=== PATIENT | male | born 1955 | race Caucasian/White ===

== ENCOUNTER 2020-03-17 17:13 | Emergency (ER) | payer MEDICARE, MEDICAID ==
[~2020-03-17] VITALS: Ht 175.3 cm; Wt 82.0 kg
[2020-03-17 17:17] VITALS: BP 129/78
== END 2020-03-17 18:50 | disposition left against medical advice (07) ==
LOC: ER 17:13
DX: Z53.21 Procedure and treatment not carried out due to patient leaving prior to being seen by health care provider (principal)

== ENCOUNTER 2023-03-04 13:43 | Emergency (ER) | payer MEDICARE, MEDICAID ==
[~2023-03-04] VITALS: Ht 175.3 cm; Wt 73.0 kg
[~2023-03-04 13:43] MED LIST: TAMS-11 MT
[2023-03-04 13:45] VITALS: TEMP 98.5; O2SAT 99
[2023-03-04 15:18] LABS: BASOPHILS % 0.6 % (0.0-2.0); EOSINOPHILS % 2.6 % (0.0-5.0); HEMATOCRIT. 40.3 % (42.0-52.0); HEMOGLOBIN. 13.7 g/dL (14.0-18.0); LYMPHOCYTES % 31.9 % (20.0-50.0); MEAN CORPUSCULAR HEMOGLOBIN 29.4 pg (28.0-32.0); MEAN CORPUSCULAR HGB CONC 33.9 g/dL (31.0-37.0); MEAN CORPUSCULAR VOLUME 86.7 fL (80.0-94.0); MEAN PLATELET VOLUME 8.9 fl (7.4-10.4); NEUTROPHILS % 59.9 % (40.0-76.0); PLATELET 189 x1000/uL (130-400); RED BLOOD CELL COUNT 4.65 mill/uL (4.7-6.1); RED CELL DISTRIBUTION WIDTH 13.4 % (11.6-14.6)
[2023-03-04 15:33] LABS: ALANINE AMINOTRANSFERASE 17 IU/L (10-49); ALBUMIN 3.7 g/dL (3.2-4.8); ASPARTATE AMINOTRANSFERASE 15 IU/L (<34); BILIRUBIN TOTAL 0.4 mg/dL (0.1-1.0); CALCIUM 9.1 mg/dL (8.7-10.4); CARBON DIOXIDE 27 mEq/L (21-32); CHLORIDE 108 mEq/L (98-107); CREATININE 0.9 mg/dL (0.6-1.3); GLUCOSE 149 mg/dL (70-105); POTASSIUM 4.2 mEq/L (3.5-5.1); PROTEIN TOTAL 6.6 g/dL (6.0-8.3); SODIUM 141 mEq/L (136-145); TROPONIN I HIGH SENSITIVITY 23 ng/L (3.0-53); UREA NITROGEN BLOOD 13 mg/dL (9-23)
[2023-03-04 15:37] LABS: ETHANOL BLOOD < 10 mg/dL (<10)
[2023-03-04] MEDS ORDERED: IBUPROFEN 600MG TABLET PO ONE (16:00)
[2023-03-04 16:24] VITALS: BP 117/84; PULSE 75; RESP 16
[2023-03-04 17:41] LABS: TROPONIN I HIGH SENSITIVITY 25 ng/L (3.0-53)
== END 2023-03-04 14:35 | disposition home or self-care (01) ==
LOC: ER 13:43
DX: R07.89 Other chest pain (principal); F15.10 Other stimulant abuse, uncomplicated; E11.9 Type 2 diabetes mellitus without complications; I11.0 Hypertensive heart disease with heart failure; I50.9 Heart failure, unspecified; Z98.890 Other specified postprocedural states
CPT/HCPCS: 36415; 71045; 80053; 80320; 83880; 84484; 85025; 93005; 99285; G0480

== ENCOUNTER 2023-05-16 15:38 | Inpatient (IN) | payer MEDICARE, MEDICAID ==
[~2023-05-16] VITALS: Ht 172.7 cm; Wt 71.7 kg
[2023-05-16 15:44] VITALS: O2SAT 100
[2023-05-16] MEDS ORDERED: CEFTRIAXONE 1GM/50ML 50 ML IV ONE (16:00)
[2023-05-16 16:39] LABS: BASOPHILS % 0.5 % (0.0-2.0); EOSINOPHILS % 0.1 % (0.0-5.0); HEMATOCRIT. 45.8 % (42.0-52.0); HEMOGLOBIN. 15.5 g/dL (14.0-18.0); LYMPHOCYTES % 14.1 % (20.0-50.0); MEAN CORPUSCULAR HEMOGLOBIN 29.3 pg (28.0-32.0); MEAN CORPUSCULAR HGB CONC 33.8 g/dL (31.0-37.0); MEAN CORPUSCULAR VOLUME 86.6 fL (80.0-94.0); MONOCYTES % 4.8 % (2.0-8.0); NEUTROPHILS % 80.5 % (40.0-76.0); PLATELET 212 x1000/uL (130-400); RED BLOOD CELL COUNT 5.29 mill/uL (4.7-6.1); RED CELL DISTRIBUTION WIDTH 13.8 % (11.6-14.6); WHITE BLOOD COUNT 16.9 x1000/uL (4.5-11.0)
[2023-05-16 16:51] LABS: PROTHROMBIN TIME 11.6 sec (9.6-11.0)
[2023-05-16 17:14] LABS: ALANINE AMINOTRANSFERASE 84 IU/L (10-49); ALBUMIN 4.9 g/dL (3.2-4.8); ASPARTATE AMINOTRANSFERASE 145 IU/L (<34); BILIRUBIN TOTAL 1.3 mg/dL (0.1-1.0); CALCIUM 9.7 mg/dL (8.7-10.4); CARBON DIOXIDE 21 mEq/L (21-32); CHLORIDE 109 mEq/L (98-107); CREATINE KINASE 2349 IU/L (46-171); CREATININE 0.8 mg/dL (0.6-1.3); ETHANOL BLOOD < 10 mg/dL (<10); GLUCOSE 176 mg/dL (70-105); POTASSIUM 3.9 mEq/L (3.5-5.1); PROTEIN TOTAL 8.3 g/dL (6.0-8.3); SODIUM 143 mEq/L (136-145); UREA NITROGEN BLOOD 37 mg/dL (9-23)
[2023-05-16 17:16] LABS: TROPONIN I HIGH SENSITIVITY 54 ng/L (3.0-53)
[2023-05-16] MEDS ORDERED: CLONIDINE 0.1MG TABLET PO PRN (19:30)
[2023-05-16] MEDS ORDERED: IPRATROPIUM/ALBUTEROL 0.5-3(2.5)MG/3ML NEB HHN PRN (19:30)
[2023-05-16] MEDS ORDERED: DOCUSATE SODIUM 100MG CAPSULE PO PRN (19:30)
[2023-05-16] MEDS ORDERED: MAGNESIUM/ALUMINUM HYDROXIDE/SIMETHICONE 30ML UDC PO PRN (19:30)
[2023-05-16] MEDS ORDERED: ONDANSETRON HCL 4MG/2ML INJ IV PRN (19:30)
[2023-05-16] MEDS ORDERED: DEXTROSE 50% WATER 50ML SYRINGE IV PRN (19:30)
[2023-05-16] MEDS ORDERED: GLIM1TAB PO (19:48)
[2023-05-16] MEDS ORDERED: SITA1TAB6 PO (19:48)
[2023-05-16] MEDS ORDERED: LURA120T2 PO (19:48)
[2023-05-16] MEDS ORDERED: SINCR21 PO (19:48)
[2023-05-16] MEDS ORDERED: ATOR40TA70 PO (19:48)
[2023-05-16] MEDS ORDERED: ESZO3TAB40 PO (19:48)
[2023-05-16] MEDS ORDERED: BUSP5TAB3 PO (19:48)
[2023-05-16] MEDS ORDERED: TRAZ-251 (19:48)
[2023-05-16] MEDS: SODIUM CHLORIDE 0.9% 1000ML BAG (SEPSIS BOLUS) IV ONE (20:16)
[2023-05-16] MEDS: ASPIRIN 81MG TABLET PO SCH (20:21)
[2023-05-16] MEDS: ENOXAPARIN 40MG/0.4ML SYR SUBCUT SCH (20:21)
[2023-05-16] MEDS: CEFTRIAXONE 1GM/50ML 50 ML IV NR (20:21)
[2023-05-16] MEDS: CARBIDOPA/LEVODOPA 25/100MG TABLET CR PO SCH (20:30)
[2023-05-16] MEDS: CEFTRIAXONE SODIUM 1G VIAL ONE (20:33)
[2023-05-16] MEDS: SODIUM CHLORIDE 0.9% 1,000 ML IV SCH (20:33)
[2023-05-16 20:37] LABS: HEPATITIS A AB IGM NEGATIVE (Negative); HEPATITIS B CORE AB IGM NEGATIVE (Negative); HEPATITIS B SURFACE ANTIGEN NEGATIVE (Negative); HEPATITIS C AB NON REACTIVE (Neg) (Negative)
[2023-05-16] MEDS: INSULIN LISPRO 100 UNITS/ML SUBCUT SCH (21:00)
[2023-05-16] MEDS: BLOOD SUGAR DIAGNOSTIC STRIP TEST SCH (21:53)
[2023-05-16] MEDS: FAMOTIDINE 20MG TABLET PO SCH (22:04)
[2023-05-16 22:26] LABS: CREATINE KINASE MB FRACTION 20.9 ng/mL (0.5-3.6)
[2023-05-16 23:14] LABS: CLARITY URINE CLEAR (CLEAR); COLOR URINE YELLOW (YELLOW); GLUCOSE URINE NEGATIVE (NEGATIVE); KETONES URINE 2+ (NEGATIVE); LEUKOCYTE ESTERASE URINE NEGATIVE (NEGATIVE); NITRITE URINE NEGATIVE (NEGATIVE); OCCULT BLOOD URINE NEGATIVE (NEGATIVE); PROTEIN URINE 2+ (NEGATIVE); SPECIFIC GRAVITY URINE 1.031 (1.005-1.030); UROBILINOGEN URINE 0.2 E.U./dL (0.2-1.0)
[2023-05-16 23:41] LABS: *AMPHETAMINES SCREEN URINE PRESUMPTIVE POSITIVE (NEGATIVE); *BARBITURATES SCREEN URINE NEGATIVE (NEGATIVE); *BENZODIAZEPINES SCREEN URINE PRESUMPTIVE POSITIVE (NEGATIVE); *COCAINE SCREEN URINE NEGATIVE (NEGATIVE); CANNABINOID URINE SCREEN NEGATIVE (NEGATIVE); ECSTASY MDMA SCREEN URINE CONF.TEST INDICATED (NEGATIVE); METHADONE URINE SCREEN Neg (NEGATIVE); OPIATES URINE SCREEN NEGATIVE (NEGATIVE); PHENCYCLIDINE URINE SCREEN NEGATIVE (NEGATIVE)
[2023-05-17] VITALS (7 sets, daily range): BP systolic 106–126; BP diastolic 48–81; PULSE 68–90; RESP 18–20; TEMP 96.6–97.8
[2023-05-17 02:57] LABS: BACTERIA URINE NONE SEEN; RBC URINE 0-2 /hpf (0-2); SQUAMOUS EPITHELIAL CELL URINE NONE SEEN /lpf (RARE/1+); WBC URINE 0-2 /hpf (0-2)
[2023-05-17 06:11] LABS: BASOPHILS % 0.3 % (0.0-2.0); EOSINOPHILS % 1.7 % (0.0-5.0); HEMATOCRIT. 44.8 % (42.0-52.0); HEMOGLOBIN. 14.8 g/dL (14.0-18.0); LYMPHOCYTES % 24.2 % (20.0-50.0); MEAN CORPUSCULAR HEMOGLOBIN 28.9 pg (28.0-32.0); MEAN CORPUSCULAR VOLUME 87.8 fL (80.0-94.0); MEAN PLATELET VOLUME 8.8 fl (7.4-10.4); NEUTROPHILS % 67.8 % (40.0-76.0); PLATELET 166 x1000/uL (130-400); RED CELL DISTRIBUTION WIDTH 14.1 % (11.6-14.6); WHITE BLOOD COUNT 13.6 x1000/uL (4.5-11.0)
[2023-05-17 08:19] LABS: ALANINE AMINOTRANSFERASE 28 IU/L (10-49); ALBUMIN 4.5 g/dL (3.2-4.8); ASPARTATE AMINOTRANSFERASE 114 IU/L (<34); CALCIUM 9.2 mg/dL (8.7-10.4); CARBON DIOXIDE 22 mEq/L (21-32); CHLORIDE 110 mEq/L (98-107); CHOLESTEROL 113 mg/dL (<200); CREATININE 0.7 mg/dL (0.6-1.3); GLUCOSE 98 mg/dL (70-105); HDL CHOLESTEROL 36 mg/dL (>55); LDL CHOLESTEROL 47 mg/dL (5-100); POTASSIUM 4.2 mEq/L (3.5-5.1); PROTEIN TOTAL 7.3 g/dL (6.0-8.3); SODIUM 145 mEq/L (136-145); T4 FREE 0.83 ng/dL (0.89-1.76); THYROID STIMULATING HORMONE 1.26 uIU/mL (0.55-4.78); TRIGLYCERIDE 109 mg/dL (0-150); UREA NITROGEN BLOOD 35 mg/dL (9-23)
[2023-05-17] MEDS: TAMSULOSIN HCL 0.4MG SR CAPSULE PO NR (08:44)
[2023-05-17] MEDS ORDERED: TAMSULOSIN HCL 0.4MG SR CAPSULE PO SCH (09:00)
[2023-05-17 10:13] LABS: CREATINE KINASE 1102 IU/L (46-171); TROPONIN I HIGH SENSITIVITY 47 ng/L (3.0-53)
[2023-05-17] MEDS: DUTASTERIDE 0.5MG CAPSULE PO NR (17:35)
[2023-05-17] MEDS: FOLIC ACID 1 MG, THIAMINE HCL 100 MG, MVI, ADULT NO.1 10 ML in DEXTROSE 5% WATER 1,000 ML IV ONE (17:35)
[2023-05-17] MEDS: BUSPIRONE HCL 5MG TABLET PO SCH (17:37)
[2023-05-17] MEDS ORDERED: CEFTRIAXONE 1GM/50ML 50 ML IV SCH (18:00)
[2023-05-17] MEDS: ACETAMINOPHEN 325MG TABLET PO PRN (19:35)
[2023-05-17] MEDS: TAMSULOSIN HCL 0.4MG SR CAPSULE PO SCH (20:45)
[2023-05-17] MEDS: TRAZODONE HCL 50MG TABLET PO SCH (20:46)
[2023-05-18] VITALS: BP 129/75; PULSE 87; RESP 20; TEMP 98.2
[2023-05-18] MEDS: LACTATED RINGERS 1,000 ML IV SCH (04:15)
[2023-05-18 06:04] LABS: HEMATOCRIT 41.6 % (42.0-52.0); HEMOGLOBIN 14.1 g/dL (14.0-18.0)
[2023-05-18 06:23] LABS: CALCIUM 8.6 mg/dL (8.7-10.4); CARBON DIOXIDE 25 mEq/L (21-32); CHLORIDE 106 mEq/L (98-107); CREATININE 0.6 mg/dL (0.6-1.3); GLUCOSE 208 mg/dL (70-105); POTASSIUM 3.1 mEq/L (3.5-5.1); SODIUM 139 mEq/L (136-145); UREA NITROGEN BLOOD 16 mg/dL (9-23)
[2023-05-18 06:57] LABS: VITAMIN B12 SERUM 647 pg/mL (211-911)
[2023-05-18 07:03] LABS: FOLIC ACID (FOLATE) SERUM > 48.00 ng/mL (>5.38)
[2023-05-18 07:18] LABS: AMMONIA 50 uMol/L (<32)
[2023-05-18 08:00] VITALS: BP 123/76; PULSE 85; RESP 18; TEMP 97.9
[2023-05-18] MEDS ORDERED: LURASIDONE HCL PO SCH (09:00)
[2023-05-18] MEDS: CLOPIDOGREL 75MG TABLET PO SCH (09:10)
[2023-05-18] MEDS: RIFAXIMIN 550 MG TABLET PO SCH (09:10)
[2023-05-18] MEDS: THIAMINE HCL 100MG TABLET PO SCH (09:10)
[2023-05-18] MEDS: LACTULOSE 20G/30ML UDC PO SCH (09:11)
[2023-05-18] MEDS: ATORVASTATIN CALCIUM 40MG TABLET PO SCH (09:11)
[2023-05-18] MEDS: FOLIC ACID 1MG TABLET PO SCH (09:11)
[2023-05-18 09:40] LABS: HEMATOCRIT 40.7 % (42.0-52.0); HEMOGLOBIN 13.9 g/dL (14.0-18.0); MEAN CORPUSCULAR HEMOGLOBIN 29.6 pg (28.0-32.0); MEAN CORPUSCULAR HGB CONC 34.2 g/dL (31.0-37.0); MEAN CORPUSCULAR VOLUME 86.4 fL (80.0-94.0); PLATELET 174 x1000/uL (130-400); RED BLOOD CELL COUNT 4.71 mill/uL (4.7-6.1); RED CELL DISTRIBUTION WIDTH 13.1 % (11.6-14.6); WHITE BLOOD COUNT 9.7 x1000/uL (4.5-11.0)
[2023-05-18 10:07] LABS: ALANINE AMINOTRANSFERASE 75 IU/L (10-49); ALBUMIN 4.2 g/dL (3.2-4.8); ASPARTATE AMINOTRANSFERASE 68 IU/L (<34); BILIRUBIN DIRECT 0.4 mg/dL (<=3.0); CREATINE KINASE 432 IU/L (46-171); PHOSPHORUS 2.6 mg/dL (2.5-4.9); PROTEIN TOTAL 7.1 g/dL (6.0-8.3)
[2023-05-18] MEDS: POTASSIUM CHLORIDE 20MEQ/PACKET PO SCH (10:36)
== END 2023-05-18 12:25 | disposition left against medical advice (07) | DRG 91 ==
LOC: ER 15:38 → 8WST 17:34 → EDBEDREQTM 17:36 → EDBEDREQ 17:36
PROVIDERS: ADMIT Internal Medicine; ATTEND Internal Medicine
DX: G92.8 Other toxic encephalopathy (principal); G82.50 Quadriplegia, unspecified; I21.A1 Myocardial infarction type 2; M62.82 Rhabdomyolysis; E78.5 Hyperlipidemia, unspecified; E11.9 Type 2 diabetes mellitus without complications; N40.0 Benign prostatic hyperplasia without lower urinary tract symptoms; S80.212A Abrasion, left knee, initial encounter; X58.XXXA Exposure to other specified factors, initial encounter; S80.211A Abrasion, right knee, initial encounter; G20.A1 Parkinson's disease without dyskinesia, without mention of fluctuations; F19.10 Other psychoactive substance abuse, uncomplicated; R26.9 Unspecified abnormalities of gait and mobility; R74.01 Elevation of levels of liver transaminase levels; F15.10 Other stimulant abuse, uncomplicated; I50.9 Heart failure, unspecified; Z79.84 Long term (current) use of oral hypoglycemic drugs; Z86.73 Personal history of transient ischemic attack (TIA), and cerebral infarction without residual deficits
CPT/HCPCS: 36415; 71045; 76700; 80048; 80053; 80061; 80076; 80305; 80320; 81003; 82140; 82306; 82550; 82553; 82607; 82746; 82962; 83036; 83605; 83735; 83880; 84100; 84145; 84439; 84443; 84484; 85014; 85018; 85025; 85027; 86705; 86709; 86850; 86900; 87340; 93005; 93306; 93880; 93970; 97162; 97166; 97530; 99285; J0696; J1650; J1815; J3411; J3490; J7030; J7070; J7120; G0480

== ENCOUNTER 2023-09-12 22:06 | Emergency (ER) | payer MEDICARE, MEDICAID ==
[~2023-09-12] VITALS: Ht 170.2 cm; Wt 73.0 kg
[~2023-09-12 22:06] MED LIST changes: +ATOR40TA70 PO; +BUSP5TAB3 PO; +ESZO3TAB40 PO; +GLIM1TAB PO; +LURA120T2 PO; +SINCR21 PO; +SITA1TAB6 PO; +TRAZ-251
[2023-09-12 22:19] VITALS: O2SAT 99
[2023-09-12] MEDS: LORAZEPAM 1MG TABLET PO ONE (23:27)
[2023-09-13 00:08] LABS: BASOPHILS % 0.5 % (0.0-2.0); EOSINOPHILS % 0.7 % (0.0-5.0); HEMATOCRIT. 40.7 % (42.0-52.0); HEMOGLOBIN. 13.9 g/dL (14.0-18.0); LYMPHOCYTES % 42.9 % (20.0-50.0); MEAN CORPUSCULAR HEMOGLOBIN 28.9 pg (28.0-32.0); MEAN CORPUSCULAR HGB CONC 34.1 g/dL (31.0-37.0); MEAN CORPUSCULAR VOLUME 84.8 fL (80.0-94.0); MEAN PLATELET VOLUME 8.9 fl (7.4-10.4); MONOCYTES % 6.4 % (2.0-8.0); NEUTROPHILS % 49.5 % (40.0-76.0); PLATELET 178 x1000/uL (130-400); RED CELL DISTRIBUTION WIDTH 13.6 % (11.6-14.6); WHITE BLOOD COUNT 5.3 x1000/uL (4.5-11.0)
[2023-09-13 00:20] LABS: CARBON DIOXIDE 24 mEq/L (21-32); CHLORIDE 110 mEq/L (98-107); POTASSIUM 3.9 mEq/L (3.5-5.1); SODIUM 141 mEq/L (136-145)
[2023-09-13 00:21] LABS: CALCIUM 9.2 mg/dL (8.7-10.4)
[2023-09-13 00:24] LABS: PARTIAL THROMBOPLASTIN TIME 24.8 sec (23.4-31.0); PROTHROMBIN TIME 11.2 sec (9.6-11.0)
[2023-09-13 00:25] VITALS: BP 124/79; PULSE 79; RESP 20; TEMP 97.9
[2023-09-13 00:26] LABS: CREATININE 0.7 mg/dL (0.6-1.3); GLUCOSE 89 mg/dL (70-105); UREA NITROGEN BLOOD 19 mg/dL (9-23)
[2023-09-13 00:28] LABS: TROPONIN I HIGH SENSITIVITY 40 ng/L (3.0-53)
[2023-09-13 00:30] LABS: ETHANOL BLOOD < 10 mg/dL (<10)
[2023-09-13] MEDS: ASPIRIN 325MG EC TABLET PO NR (00:36)
== END 2023-09-13 00:52 | disposition left against medical advice (07) ==
LOC: ER 22:06
DX: R07.89 Other chest pain (principal); F15.10 Other stimulant abuse, uncomplicated; I50.9 Heart failure, unspecified; E11.9 Type 2 diabetes mellitus without complications; Z79.899 Other long term (current) drug therapy
CPT/HCPCS: 36415; 71045; 80048; 80320; 83880; 84484; 85025; 93005; 99285; G0480

== ENCOUNTER 2023-09-17 01:51 | Emergency (ER) | payer MEDICARE, MEDICAID ==
[2023-09-17 02:34] LABS: BASOPHILS % 0.5 % (0.0-2.0); EOSINOPHILS % 1.1 % (0.0-5.0); HEMATOCRIT. 43.2 % (42.0-52.0); HEMOGLOBIN. 14.9 g/dL (14.0-18.0); LYMPHOCYTES % 36.2 % (20.0-50.0); MEAN CORPUSCULAR HEMOGLOBIN 28.9 pg (28.0-32.0); MEAN CORPUSCULAR HGB CONC 34.5 g/dL (31.0-37.0); MEAN CORPUSCULAR VOLUME 83.8 fL (80.0-94.0); MEAN PLATELET VOLUME 8.8 fl (7.4-10.4); MONOCYTES % 6.1 % (2.0-8.0); NEUTROPHILS % 56.1 % (40.0-76.0); PLATELET 189 x1000/uL (130-400); RED BLOOD CELL COUNT 5.16 mill/uL (4.7-6.1); RED CELL DISTRIBUTION WIDTH 13.9 % (11.6-14.6); WHITE BLOOD COUNT 6.8 x1000/uL (4.5-11.0)
[2023-09-17] MEDS: SODIUM CHLORIDE 0.9% 1,000 ML IV ONE (02:37)
[2023-09-17] MEDS: NITROGLYCERIN 0.4MG TABLET SL SL ONE (02:37)
[2023-09-17] MEDS: ASPIRIN 325MG EC TABLET PO ONE (02:37)
[2023-09-17] MEDS: LORAZEPAM 1MG TABLET PO ONE (02:37)
[2023-09-17 02:51] LABS: INR 1.1; PROTHROMBIN TIME 11.7 sec (9.6-11.0)
[2023-09-17 03:05] LABS: CLARITY URINE CLEAR (CLEAR); COLOR URINE YELLOW (YELLOW); GLUCOSE URINE NEGATIVE (NEGATIVE); KETONES URINE NEGATIVE (NEGATIVE); LEUKOCYTE ESTERASE URINE NEGATIVE (NEGATIVE); NITRITE URINE NEGATIVE (NEGATIVE); OCCULT BLOOD URINE NEGATIVE (NEGATIVE); PH URINE 6.5 (4.5-8.0); PROTEIN URINE NEGATIVE (NEGATIVE); SPECIFIC GRAVITY URINE 1.011 (1.005-1.030); UROBILINOGEN URINE 0.2 E.U./dL (0.2-1.0)
[2023-09-17 03:23] LABS: CHLORIDE 106 mEq/L (98-107); POTASSIUM 3.9 mEq/L (3.5-5.1); SODIUM 138 mEq/L (136-145)
[2023-09-17 03:24] LABS: CALCIUM 9.6 mg/dL (8.7-10.4); CARBON DIOXIDE 22 mEq/L (21-32)
[2023-09-17 03:29] LABS: CREATININE 0.7 mg/dL (0.6-1.3); GLUCOSE 120 mg/dL (70-105); TROPONIN I HIGH SENSITIVITY 36 ng/L (3.0-53); UREA NITROGEN BLOOD 13 mg/dL (9-23)
[2023-09-17 03:31] LABS: ALANINE AMINOTRANSFERASE 7 IU/L (10-49); ALBUMIN 4.4 g/dL (3.2-4.8); ASPARTATE AMINOTRANSFERASE 21 IU/L (<34); BILIRUBIN DIRECT 0.3 mg/dL (<=3.0); BILIRUBIN TOTAL 0.7 mg/dL (0.1-1.0); PROTEIN TOTAL 7.1 g/dL (6.0-8.3)
[2023-09-17 06:29] VITALS: BP 131/69; PULSE 89; RESP 15
== END 2023-09-17 07:02 | disposition admitted as inpatient to this hospital (09) ==
LOC: ER 01:51 → EDBEDREQ 03:51 → EDBEDREQTM 03:51 → ER 07:02
DX: R55 Syncope and collapse (principal); F15.10 Other stimulant abuse, uncomplicated; E78.00 Pure hypercholesterolemia, unspecified; E11.9 Type 2 diabetes mellitus without complications; Z98.890 Other specified postprocedural states
CPT/HCPCS: 99291; 80076; 80048; 81003; 83880; 83690; 85025; 85610; 84484; 36415; 71045; 93005; J7030

== ENCOUNTER 2023-09-19 02:26 | Emergency (ER) | payer MEDICARE, MEDICAID ==
[~2023-09-19] VITALS: Ht 175.3 cm; Wt 78.0 kg
[2023-09-19 02:30] VITALS: BP 136/79; PULSE 92; RESP 20; TEMP 98.1; O2SAT 97
[2023-09-19 03:38] LABS: BASOPHILS % 0.3 % (0.0-2.0); HEMATOCRIT. 43.9 % (42.0-52.0); HEMOGLOBIN. 14.9 g/dL (14.0-18.0); LYMPHOCYTES % 34.6 % (20.0-50.0); MEAN CORPUSCULAR HEMOGLOBIN 28.8 pg (28.0-32.0); MEAN CORPUSCULAR VOLUME 84.8 fL (80.0-94.0); MEAN PLATELET VOLUME 8.7 fl (7.4-10.4); MONOCYTES % 4.1 % (2.0-8.0); PLATELET 198 x1000/uL (130-400); RED BLOOD CELL COUNT 5.18 mill/uL (4.7-6.1); RED CELL DISTRIBUTION WIDTH 13.6 % (11.6-14.6); WHITE BLOOD COUNT 7.9 x1000/uL (4.5-11.0)
[2023-09-19 03:58] LABS: CHLORIDE 108 mEq/L (98-107); POTASSIUM 4.2 mEq/L (3.5-5.1); SODIUM 140 mEq/L (136-145)
[2023-09-19 03:59] LABS: CALCIUM 9.5 mg/dL (8.7-10.4)
[2023-09-19 04:04] LABS: CREATININE 0.7 mg/dL (0.6-1.3)
[2023-09-19] MEDS: LORAZEPAM 1MG TABLET PO ONE (05:50)
[2023-09-19 06:05] LABS: CARBON DIOXIDE 20 mEq/L (21-32); GLUCOSE 106 mg/dL (70-105); UREA NITROGEN BLOOD 14 mg/dL (9-23)
[2023-09-19 06:10] LABS: BASOPHILS % 0.5 % (0.0-2.0); EOSINOPHILS % 1.6 % (0.0-5.0); HEMATOCRIT. 43.3 % (42.0-52.0); HEMOGLOBIN. 14.7 g/dL (14.0-18.0); LYMPHOCYTES % 37.7 % (20.0-50.0); MEAN CORPUSCULAR HEMOGLOBIN 28.6 pg (28.0-32.0); MEAN CORPUSCULAR VOLUME 84.2 fL (80.0-94.0); MEAN PLATELET VOLUME 8.3 fl (7.4-10.4); MONOCYTES % 4.9 % (2.0-8.0); NEUTROPHILS % 55.3 % (40.0-76.0); PLATELET 215 x1000/uL (130-400); RED BLOOD CELL COUNT 5.14 mill/uL (4.7-6.1); RED CELL DISTRIBUTION WIDTH 13.5 % (11.6-14.6)
[2023-09-19 06:20] LABS: CHLORIDE 108 mEq/L (98-107); POTASSIUM 3.9 mEq/L (3.5-5.1); SODIUM 138 mEq/L (136-145)
[2023-09-19 06:21] LABS: CARBON DIOXIDE 21 mEq/L (21-32)
[2023-09-19 06:22] LABS: CALCIUM 9.7 mg/dL (8.7-10.4)
[2023-09-19 06:26] LABS: CREATININE 0.7 mg/dL (0.6-1.3); GLUCOSE 104 mg/dL (70-105)
[2023-09-19 06:27] LABS: TROPONIN I HIGH SENSITIVITY 33 ng/L (3.0-53); UREA NITROGEN BLOOD 14 mg/dL (9-23)
[2023-09-19 06:28] LABS: ALANINE AMINOTRANSFERASE 9 IU/L (10-49); ALBUMIN 4.4 g/dL (3.2-4.8); ASPARTATE AMINOTRANSFERASE 21 IU/L (<34)
[2023-09-19 06:29] LABS: BILIRUBIN TOTAL 0.9 mg/dL (0.1-1.0)
== END 2023-09-19 08:09 | disposition home or self-care (01) ==
LOC: ER 02:38
DX: F41.9 Anxiety disorder, unspecified (principal); R07.89 Other chest pain; F15.10 Other stimulant abuse, uncomplicated; E78.00 Pure hypercholesterolemia, unspecified; E11.9 Type 2 diabetes mellitus without complications; Z79.899 Other long term (current) drug therapy; Z98.890 Other specified postprocedural states
CPT/HCPCS: 36415; 80048; 80053; 84484; 85025; 93005; 99284

== ENCOUNTER 2023-11-13 23:38 | Inpatient (IN) | payer MEDICARE, MEDICAID ==
[~2023-11-13] VITALS: Ht 172.7 cm; Wt 82.0 kg
[~2023-11-13 23:38] MED LIST changes: -GLIM1TAB PO; +GLIM1TAB55 PO
[2023-11-13 23:42] VITALS: O2SAT 98
[2023-11-14] MEDS ORDERED: MORPHINE SULFATE 4 MG/ML INJ (FOR IV/IM USE) IV STA (00:23)
[2023-11-14] MEDS: ASPIRIN 81MG TABLET PO ONE (00:30)
[2023-11-14 00:55] LABS: BASOPHILS % 0.3 % (0.0-2.0); HEMATOCRIT. 44.3 % (42.0-52.0); HEMOGLOBIN. 14.9 g/dL (14.0-18.0); LYMPHOCYTES % 37.2 % (20.0-50.0); MEAN CORPUSCULAR HEMOGLOBIN 28.8 pg (28.0-32.0); MEAN CORPUSCULAR HGB CONC 33.6 g/dL (31.0-37.0); MEAN CORPUSCULAR VOLUME 85.6 fL (80.0-94.0); MONOCYTES % 6.5 % (2.0-8.0); PLATELET 207 x1000/uL (130-400); RED BLOOD CELL COUNT 5.17 mill/uL (4.7-6.1); RED CELL DISTRIBUTION WIDTH 13.4 % (11.6-14.6); WHITE BLOOD COUNT 10.5 x1000/uL (4.5-11.0)
[2023-11-14 01:05] LABS: CHLORIDE 105 mEq/L (98-107); POTASSIUM 3.9 mEq/L (3.5-5.1); SODIUM 139 mEq/L (136-145)
[2023-11-14 01:06] LABS: CALCIUM 10.7 mg/dL (8.7-10.4); CARBON DIOXIDE 25 mEq/L (21-32)
[2023-11-14 01:11] LABS: GLUCOSE 115 mg/dL (70-105); UREA NITROGEN BLOOD 12 mg/dL (9-23)
[2023-11-14 01:37] LABS: TROPONIN I HIGH SENSITIVITY 77 ng/L (3.0-53)
[2023-11-14] MEDS: HEPARIN 5000 UNITS/ML VIAL IV ONE (03:00)
[2023-11-14] MEDS: ASPIRIN 81MG TABLET PO NR (03:30)
[2023-11-14] MEDS: HEPARIN 5000 UNITS/ML VIAL IV NR (03:30)
[2023-11-14 03:48] LABS: TROPONIN I HIGH SENSITIVITY 75 ng/L (3.0-53)
[2023-11-14] MEDS: MORPHINE SULFATE 4 MG/ML INJ (FOR IV/IM USE) IV NR (04:16)
[2023-11-14 05:16] LABS: CREATININE 0.9 mg/dL (0.6-1.3)
[2023-11-14 05:46] VITALS: O2SAT 100
[2023-11-14] MEDS: LORAZEPAM 0.5MG TABLET PO NR (06:04)
[2023-11-14] MEDS: NITROGLYCERIN 0.4MG TABLET SL SL PRN (06:04)
[2023-11-14] MEDS ORDERED: IPRATROPIUM/ALBUTEROL 0.5-3(2.5)MG/3ML NEB HHN PRN (06:15)
[2023-11-14] MEDS ORDERED: THROAT LOZENGES-BENZOCAINE/MENTH/CETYLPYRD CL LOZENGES MM PRN (06:15)
[2023-11-14] MEDS ORDERED: ONDANSETRON HCL 4MG/2ML INJ IV PRN (06:15)
[2023-11-14] MEDS ORDERED: DOCUSATE SODIUM 100MG CAPSULE PO PRN (06:15)
[2023-11-14] MEDS ORDERED: ACETAMINOPHEN 325MG TABLET PO PRN ×2 (06:15)
[2023-11-14] MEDS ORDERED: GUAIFENESIN 200MG/10ML SUGAR FREE UDC PO PRN (06:15)
[2023-11-14] MEDS ORDERED: LORAZEPAM 0.5MG TABLET PO PRN (06:15)
[2023-11-14] MEDS ORDERED: CLONIDINE 0.1MG TABLET PO PRN (06:15)
[2023-11-14 06:24] VITALS: BP 148/98; PULSE 69; RESP 14; TEMP 36.78072
[2023-11-14] MEDS ORDERED: TAMSULOSIN HCL 0.4MG SR CAPSULE PO SCH (09:00)
[2023-11-14] MEDS ORDERED: LURASIDONE HCL PO SCH (09:00)
[2023-11-14] MEDS ORDERED: ASPIRIN 81MG TABLET PO SCH (09:00)
[2023-11-14] MEDS ORDERED: BUSPIRONE HCL 5MG TABLET PO SCH (09:00)
[2023-11-14] MEDS ORDERED: CARBIDOPA/LEVODOPA 25/100MG TABLET PO SCH (09:00)
[2023-11-14] MEDS ORDERED: ATORVASTATIN CALCIUM 40MG TABLET PO SCH (09:00)
[2023-11-14] MEDS ORDERED: ENOXAPARIN 40MG/0.4ML SYR SUBCUT SCH (10:00)
[2023-11-14] MEDS ORDERED: TRAZODONE HCL 50MG TABLET PO SCH (21:00)
[2023-11-14] MEDS ORDERED: FAMOTIDINE 20MG TABLET PO SCH (21:00)
== END 2023-11-14 06:44 | disposition left against medical advice (07) | DRG 282 ==
LOC: ER 23:38 → 5WST 11-14 04:50
PROVIDERS: ADMIT Internal Medicine; ATTEND Internal Medicine
DX: I21.4 Non-ST elevation (NSTEMI) myocardial infarction (principal); N40.0 Benign prostatic hyperplasia without lower urinary tract symptoms; G20.A1 Parkinson's disease without dyskinesia, without mention of fluctuations; I25.10 Atherosclerotic heart disease of native coronary artery without angina pectoris; F41.9 Anxiety disorder, unspecified; F32.A Depression, unspecified; E78.00 Pure hypercholesterolemia, unspecified; E11.9 Type 2 diabetes mellitus without complications; Z53.29 Procedure and treatment not carried out because of patient's decision for other reasons; Z98.61 Coronary angioplasty status; Z79.899 Other long term (current) drug therapy; F15.90 Other stimulant use, unspecified, uncomplicated
CPT/HCPCS: 36415; 71045; 80048; 83036; 83880; 84484; 85025; 93005; 99285; J1644; J2270

== ENCOUNTER 2024-01-10 05:02 | Emergency (ER) | payer OTHER, MEDICAID ==
[~2024-01-10] VITALS: Ht 170.2 cm; Wt 72.0 kg
[2024-01-10 05:04] VITALS: O2SAT 99
[2024-01-10] MEDS: HALOPERIDOL LACTATE 5MG/ML VIAL IM ONE (05:30)
[2024-01-10] MEDS: MIDAZOLAM HCL 2 MG/2 ML VIAL IM ONE (05:45)
[2024-01-10 06:34] LABS: BASOPHILS % 0.5 % (0.0-2.0); EOSINOPHILS % 3.6 % (0.0-5.0); HEMOGLOBIN. 13.8 g/dL (14.0-18.0); LYMPHOCYTES % 47.9 % (20.0-50.0); MEAN CORPUSCULAR HEMOGLOBIN 29.5 pg (28.0-32.0); MEAN CORPUSCULAR HGB CONC 34.5 g/dL (31.0-37.0); MEAN CORPUSCULAR VOLUME 85.4 fL (80.0-94.0); MEAN PLATELET VOLUME 8.4 fl (7.4-10.4); MONOCYTES % 8.1 % (2.0-8.0); NEUTROPHILS % 39.9 % (40.0-76.0); PLATELET 178 x1000/uL (130-400); RED BLOOD CELL COUNT 4.68 mill/uL (4.7-6.1); RED CELL DISTRIBUTION WIDTH 13.2 % (11.6-14.6); WHITE BLOOD COUNT 5.6 x1000/uL (4.5-11.0)
[2024-01-10 06:42] LABS: CHLORIDE 107 mEq/L (98-107); POTASSIUM 3.3 mEq/L (3.5-5.1); SODIUM 140 mEq/L (136-145)
[2024-01-10 06:43] LABS: CALCIUM 10.1 mg/dL (8.7-10.4); CARBON DIOXIDE 27 mEq/L (21-32)
[2024-01-10 06:48] LABS: CREATININE 0.8 mg/dL (0.6-1.3); GLUCOSE 161 mg/dL (70-105); UREA NITROGEN BLOOD 12 mg/dL (9-23)
[2024-01-10 06:50] LABS: ACETAMINOPHEN < 2 ug/mL (10-30)
[2024-01-10 07:09] LABS: ETHANOL BLOOD < 10 mg/dL (<10)
[2024-01-10] MEDS ORDERED: PERM60CR4 TP (19:22)
[2024-01-10] MEDS ORDERED: P50 MT (19:22)
[2024-01-10] MEDS ORDERED: CETI10CA2 MT (19:22)
[2024-01-10 19:43] VITALS: BP 127/79; PULSE 76; RESP 20; TEMP 36.61404; O2SAT 99
== END 2024-01-10 20:12 | disposition home or self-care (01) ==
LOC: ER 05:20
DX: R44.3 Hallucinations, unspecified (principal); E11.9 Type 2 diabetes mellitus without complications; E78.00 Pure hypercholesterolemia, unspecified; F41.9 Anxiety disorder, unspecified; Z98.890 Other specified postprocedural states; Z79.899 Other long term (current) drug therapy
CPT/HCPCS: 80048; 80307; 80329; 80320; 85025; 36415; 96372; 99285; J1630; J2250; G0480

== ENCOUNTER 2024-03-03 17:04 | Emergency (ER) | payer OTHER, MEDICAID ==
[~2024-03-03] VITALS: Ht 177.8 cm; Wt 75.0 kg
[~2024-03-03 17:04] MED LIST changes: +CETI10CA2 MT; +P50 MT; +PERM60CR4 TP
[2024-03-03 17:05] VITALS: O2SAT 99
[2024-03-03] MEDS ORDERED: ACETAMINOPHEN 325MG TABLET ONE (20:26)
[2024-03-03] MEDS: ACETAMINOPHEN 325MG TABLET PO ONE (20:28)
[2024-03-03] MEDS: LIDOCAINE 5% PATCH TOP SCH (20:29)
[2024-03-03] MEDS: ACETAMINOPHEN 325MG TABLET PO NR (20:52)
[2024-03-04 05:36] VITALS: BP 119/76; PULSE 84; RESP 16; TEMP 36.61404; O2SAT 99
== END 2024-03-04 05:50 | disposition home or self-care (01) ==
LOC: ER 17:04
DX: G89.29 Other chronic pain (principal); M54.50 Low back pain, unspecified; E11.9 Type 2 diabetes mellitus without complications; E78.00 Pure hypercholesterolemia, unspecified; F41.9 Anxiety disorder, unspecified; G20.A1 Parkinson's disease without dyskinesia, without mention of fluctuations; Z79.899 Other long term (current) drug therapy
CPT/HCPCS: 99284

== ENCOUNTER 2024-08-02 16:28 | Emergency (ER) | payer MEDICAID, MEDICARE ==
[~2024-08-02] VITALS: Ht 177.8 cm; Wt 80.0 kg
[~2024-08-02 16:28] MED LIST changes: +ATOR-2 PO; -ATOR40TA70 PO; -BUSP5TAB3 PO; -CETI10CA2 MT; -ESZO3TAB40 PO; -P50 MT; -TAMS-11 MT; +TAMS-54 MT
[2024-08-02 16:38] VITALS: O2SAT 99
[2024-08-02] MEDS: OLANZAPINE 10 MG/VIAL IM STA (17:32)
[2024-08-02 17:42] LABS: BASOPHILS % 0.5 % (0.0-2.0); EOSINOPHILS % 1.1 % (0.0-5.0); HEMATOCRIT. 36.3 % (42.0-52.0); HEMOGLOBIN. 12.4 g/dL (14.0-18.0); LYMPHOCYTES % 28.7 % (20.0-50.0); MEAN CORPUSCULAR HEMOGLOBIN 28.3 pg (28.0-32.0); MEAN CORPUSCULAR HGB CONC 34.2 g/dL (31.0-37.0); MEAN CORPUSCULAR VOLUME 82.9 fL (80.0-94.0); MEAN PLATELET VOLUME 9.2 fl (7.4-10.4); MONOCYTES % 5.8 % (2.0-8.0); NEUTROPHILS % 63.9 % (40.0-76.0); PLATELET 193 x1000/uL (130-400); RED BLOOD CELL COUNT 4.38 mill/uL (4.7-6.1); RED CELL DISTRIBUTION WIDTH 13.6 % (11.6-14.6); WHITE BLOOD COUNT 5.7 x1000/uL (4.5-11.0)
[2024-08-02] MEDS: LORAZEPAM 1MG TABLET PO ONE (17:45)
[2024-08-02 17:47] LABS: CHLORIDE 106 mEq/L (98-107); POTASSIUM 3.2 mEq/L (3.5-5.1); SODIUM 139 mEq/L (136-145)
[2024-08-02 17:48] LABS: CARBON DIOXIDE 21 mEq/L (21-32)
[2024-08-02 17:49] LABS: CALCIUM 8.8 mg/dL (8.7-10.4)
[2024-08-02 17:53] LABS: CREATININE 0.7 mg/dL (0.6-1.3)
[2024-08-02 17:54] LABS: ETHANOL BLOOD < 10 mg/dL (<10); UREA NITROGEN BLOOD 9 mg/dL (9-23)
[2024-08-02 17:55] LABS: ACETAMINOPHEN < 2 ug/mL (10-30)
[2024-08-02 17:56] LABS: CREATINE KINASE 92 IU/L (46-171); GLUCOSE 369 mg/dL (70-105)
[2024-08-02 18:09] LABS: *AMPHETAMINES SCREEN URINE PRESUMPTIVE POSITIVE (NEGATIVE); *BARBITURATES SCREEN URINE NEGATIVE (NEGATIVE); *BENZODIAZEPINES SCREEN URINE NEGATIVE (NEGATIVE); *COCAINE SCREEN URINE NEGATIVE (NEGATIVE); CANNABINOID URINE SCREEN NEGATIVE (NEGATIVE); ECSTASY MDMA SCREEN URINE NEGATIVE (NEGATIVE); METHADONE URINE SCREEN NEGATIVE (NEGATIVE); OPIATES URINE SCREEN NEGATIVE (NEGATIVE); PHENCYCLIDINE URINE SCREEN NEGATIVE (NEGATIVE)
[2024-08-02] MEDS ORDERED: INSULIN LISPRO 100 UNITS/ML SUBCUT ONE (18:15)
[2024-08-02] MEDS: INSULIN LISPRO 100 UNITS/ML SUBCUT SCH (18:50)
[2024-08-03 06:00] VITALS: BP 116/62; PULSE 88; RESP 16; TEMP 36.7; O2SAT 99
== END 2024-08-03 11:31 | disposition home or self-care (01) ==
LOC: ER 16:36
DX: R44.3 Hallucinations, unspecified (principal); F15.90 Other stimulant use, unspecified, uncomplicated; E11.65 Type 2 diabetes mellitus with hyperglycemia; E78.00 Pure hypercholesterolemia, unspecified; F31.9 Bipolar disorder, unspecified; F41.9 Anxiety disorder, unspecified; Z20.822 Contact with and (suspected) exposure to COVID-19; Z79.899 Other long term (current) drug therapy
CPT/HCPCS: 80305; 80048; 80307; 80329; 80320; 82550; 82962; 85025; 36415; 96372; 99285; 87426; J3490; J1815; G0480